=== PATIENT | female | born 1950 | race Two or more races ===

== ENCOUNTER 2018-01-08 08:48 | Emergency (ER) | payer OTHER ==
[~2018-01-08] VITALS: Ht 162.6 cm; Wt 80.3 kg
[2018-01-08] MEDS ORDERED: ASPIR 8181 MG ORAL (09:00)
[2018-01-08] MEDS ORDERED: CARVEDILOL3.125 MG ORAL (09:00)
[2018-01-08] MEDS ORDERED: TRAMADOL HCL50 MG ORAL (09:00)
[2018-01-08] MEDS ORDERED: AMLODIPINE BES2.5 MG ORAL (09:00)
[2018-01-08] MEDS ORDERED: LEVEMIR FL100 UNIT/1 SUBQ (09:01)
--- NOTE | 2018-01-08 09:17 | Emergency Room Report ---
History of Present Illness General Chief Complaint: Lower Extremity Injury Source: Patient Present Illness HPI History the patient was transferring a client into bed. The patient's legs went down and she had to twist her leg in order to prevent the client from falling onto the floor. She felt pain at that time in her lateral thigh. When she's been moving about the thigh has been hurting. She took tramadol 7:00 this morning. Itself with the pain somewhat. She is also using local pain pads. She denies any back pain. There is no weakness or numbness. She denies any fevers or chills. She rates the pain at 9/10. It's located in a specific area of her lateral thigh and does not radiate. It's constant and worse when she moves about or touches the area. H/O diabetes. Glucose in AM was 119. 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[employer] Reviewed Nursing Documentation: PMH: Agreed; PSxH: Agreed Nursing Documentation-PMH Past Medical History: No History, Except For Hx Cardiac Problems: Yes - high cholesterol, stents x 2 (2007) Hx Hypertension: Yes Hx Diabetes: Yes Review of Systems Constitutional: Denies: fever Respiratory: Denies: shortness of breath Cardiovascular: Denies: chest pain Gastrointestinal: Denies: abdominal pain Genitourinary: Reports: see HPI Musculoskeletal: Reports: see HPI Neurological: Reports: see HPI Hematologic/Lymphatic: Denies: easy bruising Physical Exam Vital Signs Date Time Temp Pulse Resp B/P (MAP) Pulse Ox O2 Delivery O2 Flow Rate FiO2 01/08/18 08:54 97.5 60 13 139/69 94 Room Air 97.5 Sp02 EP Interpretation: reviewed, normal General Appearance: well appearing, no apparent distress Head: normocephalic, atraumatic Eyes: bilateral eye normal inspection, bilateral eye PERRL ENT: hearing grossly normal, normal voice Neck: full range of motion, supple Respiratory: no respiratory distress, speaking full sentences Cardiovascular #1: regular rate, rhythm Cardiovascular #2: 2+ radial (R) Gastrointestinal: normal inspection, non tender Genitourinary: no CVA tenderness Musculoskeletal: back normal, normal range of motion - with tenderness L lateral thigh, no calf tenderness Neurologic: alert, oriented x3, motor strength/tone normal, DTRs symmetric, sensory intact, normal gait Psychiatric: mood/affect normal Reflexes: 2+ knee (R), 2+ knee (L), 2+ ankle (R), 2+ ankle (L) Skin: no rash Medical Decision Making Diagnostic Impression: Primary Impression: Muscle strain of left thigh Qualified Codes: S76.912A - Strain of unspecified muscles, fascia and tendons at thigh level, left thigh, initial encounter ER Course Patient presents with left lateral thigh pain after twisting injury yesterday. Differential includes strain muscle, hip injury, back strain amongst others. Based on exam and the history this is most consistent with a muscle strain. The patient to tramadol earlier this morning. We will be giving her a dose of Motrin here. She is asking for time off work. She refuses crutches. Imaging is not indicated. Pain improved with treatment. The patient is stable for outpatient observation and treatment. Last Vital Signs Date Time Temp Pulse Resp B/P (MAP) Pulse Ox O2 Delivery O2 Flow Rate FiO2 01/08/18 09:44 [id number] 60 13 139/69 94 Room Air 207.5 Status: improved Disposition: HOME, SELF-CARE Condition: Improved Scripts Ibuprofen* (MOTRIN*) 600 Mg Tablet 600 MG ORAL Q6H PRN for For Pain, #20 TAB Prov: Gerald Harmon M.D. 01/08/18 Gerald Harmon M.D. January 08, 2018 09:17
[2018-01-08] MEDS ORDERED: IBUPROFEN600 MG ORAL (09:20)
[2018-01-08 09:44] VITALS: BP 139/69
== END 2018-01-08 09:53 | disposition home or self-care (01) ==
LOC: EMR 09:29
DX: S76.912A Strain of unspecified muscles, fascia and tendons at thigh level, left thigh, initial encounter (principal); X50.9XXA Other and unspecified overexertion or strenuous movements or postures, initial encounter; Y93.F2 Activity, caregiving, lifting; Y92.239 Unspecified place in hospital as the place of occurrence of the external cause; Y99.0 Civilian activity done for income or pay; I10 Essential (primary) hypertension; E11.9 Type 2 diabetes mellitus without complications
CPT/HCPCS: 99283